=== PATIENT | female | born 1980 | race Caucasian/White ===

== ENCOUNTER 2021-11-04 09:37 | Outpatient (RCR) | payer OTHER ==
[~2021-11-04 09:37] MED LIST: PERCOCET 325 MG1 TA2 PO; PRENATAL1 TA1 PO
== END 2021-11-25 | disposition home or self-care (01) ==
LOC: WSOH
DX: M77.12 Lateral epicondylitis, left elbow (principal); M77.11 Lateral epicondylitis, right elbow; Z90.89 Acquired absence of other organs; Z98.890 Other specified postprocedural states; Y99.0 Civilian activity done for income or pay